=== PATIENT | male | born 1965 | race Caucasian/White ===

== ENCOUNTER 2018-09-12 18:41 | Emergency (ER) | payer MEDICARE ==
[~2018-09-12] VITALS: Ht 170.2 cm; Wt 90.7 kg
[2018-09-12] MEDS ORDERED: DEPAKOTE ER500 MG PO ×2 (18:51→19:49)
[2018-09-12] MEDS ORDERED: DILAUDID8 MG PO (18:51)
[2018-09-12] MEDS ORDERED: KLONOPIN0.5 MG PO (18:51)
[2018-09-12] MEDS ORDERED: FLOMAX0.4 MG PO (18:52)
== END 2018-09-12 19:57 | disposition home or self-care (01) ==
LOC: ED 18:41
DX: Z76.0 Encounter for issue of repeat prescription (principal); F17.200 Nicotine dependence, unspecified, uncomplicated; Z88.8 Allergy status to other drugs, medicaments and biological substances; Z79.899 Other long term (current) drug therapy
CPT/HCPCS: 99281

== ENCOUNTER 2018-09-24 17:21 | Emergency (ER) | payer MEDICARE ==
[~2018-09-24] VITALS: Ht 170.2 cm; Wt 90.7 kg
[~2018-09-24 17:21] MED LIST: DEPAKOTE ER500 MG PO; DILAUDID8 MG PO; FLOMAX0.4 MG PO; KLONOPIN0.5 MG PO
--- OUTSIDE RECORDS SUMMARY | 2018-09-24 17:24 | XMS ---
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 - 2 Visits in 30 Days CARE PROVIDERS There are no care providers on record at this time. Veronika has no Care Guidelines for this patient. Rita VISIT COUNT (12 MO.) 2 [facility] TOTAL 2 NOTE: Visits indicate total known visits. [place] [place]12 [place].) [facility] [place] [facility] COMPLAINT: - SORE THROAT,SINUS,BILATE EAR PAIN 09/12/2018 18:[address] [facility] [place] TYPE: Emergency COMPLAINT: - MEDICATION REFILL DIAGNOSES: - Nicotine dependence, unspecified, uncomplicated - Encounter for issue of repeat prescription - Other retirement (current) drug therapy - Allergy status to other drugs, medicaments and biological substances status INPATIENT VISIT TRACKING (12 MO.) No inpatient visits to display in this time frame [id number]
[2018-09-24] MEDS ORDERED: CYCLOBENZAPRINE10 MG PO (17:45)
[2018-09-24] MEDS ORDERED: IBU800 MG PO (18:18)
== END 2018-09-24 18:31 | disposition home or self-care (01) ==
LOC: ED 17:21
DX: J06.9 Acute upper respiratory infection, unspecified (principal); F17.200 Nicotine dependence, unspecified, uncomplicated; Z88.8 Allergy status to other drugs, medicaments and biological substances; Z79.899 Other long term (current) drug therapy
CPT/HCPCS: 87081; 87880; 99283

== ENCOUNTER 2019-01-03 17:58 | Emergency (ER) | payer MEDICARE, OTHER ==
[~2019-01-03] VITALS: Ht 170.2 cm; Wt 90.7 kg
[~2019-01-03 17:58] MED LIST changes: +CYCLOBENZAPRINE10 MG PO; +IBU800 MG PO
--- OUTSIDE RECORDS SUMMARY | 2019-01-03 18:00 | XMS ---
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 Veronika has no Care Guidelines for this patient. Care History Medical/Surgical 09/27/2018 [facility] - PATIENT DOES NOT HAVE A PCP- - [facility] CALLED PATIENT AND LEFT A VOICEMAIL. - SENT NO PCP LETTER E.D. VISIT COUNT (12 MO.) 3 [facility]. TOTAL 3 NOTE: Visits indicate total known visits. ED/C VISIT TRACKING (12 MO.) 01/03/2019 17:59 [facility] [place] TYPE: Emergency COMPLAINT: - MEDICATION REFILL 09/24/2018 17:22 [facility] [place] TYPE: Emergency COMPLAINT: - SORE THROAT,SINUS,BILATE EAR PAIN DIAGNOSES: - Nicotine dependence, unspecified, uncomplicated - Allergy status to oth drug/meds/biol subst status - Other salvage determiner (current) drug therapy - Acute pharyngitis, unspecified - Acute upper respiratory infection, unspecified 09/12/2018 18:42 [facility] [place] TYPE: Emergency COMPLAINT: - MEDICATION REFILL DIAGNOSES: - Nicotine dependence, unspecified, uncomplicated - Encounter for issue of repeat prescription - Other salvage determiner (current) drug therapy - Allergy status to oth drug/meds/biol subst status INPATIENT VISIT TRACKING (12 MO.) No inpatient visits to display in this time frame [id number]
[2019-01-03] MEDS ORDERED: DEPAKOTE ER500 MG PO (19:27)
[2019-01-03] MEDS ORDERED: CYCLOBENZAPRINE10 MG PO (19:27)
== END 2019-01-03 19:34 | disposition home or self-care (01) ==
LOC: ED 17:58
DX: Z76.0 Encounter for issue of repeat prescription (principal); F17.200 Nicotine dependence, unspecified, uncomplicated; Z88.8 Allergy status to other drugs, medicaments and biological substances
CPT/HCPCS: 99281